=== PATIENT | male | born 1950 | race Caucasian/White ===

== ENCOUNTER 2021-12-08 19:29 | Emergency (ER) | payer MEDICARE ==
[~2021-12-08] VITALS: Ht 172.7 cm; Wt 115.9 kg
[2021-12-08] MEDS ORDERED: TETanus/Pertussis (Acell)/Diphther VAC/PF (Tdap-Adult) 0.5ml syringe IMVAC ONE (20:35)
[2021-12-08] MEDS ORDERED: LIDOcaine 1% W/epiNEPHrine 1:100,000 20ml vial IJ ONE (20:35)
[2021-12-08] MEDS ORDERED: bacitracin 15gm ointment TP ONE (20:35)
[2021-12-08] MEDS ORDERED: acetaminophen 325mg tablet PO ONE (21:25)
[2021-12-08 21:55] VITALS: BP 132/68
== END 2021-12-08 21:58 | disposition home or self-care (01) ==
LOC: ER 19:30
DX: S62.101A Fracture of unspecified carpal bone, right wrist, initial encounter for closed fracture (principal); S61.411A Laceration without foreign body of right hand, initial encounter; S00.81XA Abrasion of other part of head, initial encounter; Z20.3 Contact with and (suspected) exposure to rabies; Z72.89 Other problems related to lifestyle; W18.09XA Striking against other object with subsequent fall, initial encounter; Y93.89 Activity, other specified; Y92.89 Other specified places as the place of occurrence of the external cause; Y99.8 Other external cause status; S09.90XA Unspecified injury of head, initial encounter; S13.9XXA Sprain of joints and ligaments of unspecified parts of neck, initial encounter
CPT/HCPCS: 12001; 70450; 72125; 73130; 90471; 90715; 99284

== ENCOUNTER 2024-02-29 14:52 | Emergency (ER) | payer MEDICARE ==
[~2024-02-29] VITALS: Ht 172.7 cm; Wt 120.0 kg
[2024-02-29 15:08] VITALS: BP 148/81; PULSE 60; RESP 18; TEMP 97.8; O2SAT 97
== END 2024-02-29 18:22 | disposition left against medical advice (07) ==
LOC: ER 14:52
DX: S61.210A Laceration without foreign body of right index finger without damage to nail, initial encounter (principal); Z53.21 Procedure and treatment not carried out due to patient leaving prior to being seen by health care provider; W26.0XXA Contact with knife, initial encounter; Y93.89 Activity, other specified; Y92.89 Other specified places as the place of occurrence of the external cause; Y99.8 Other external cause status